=== PATIENT | female | born 1940 | race Hispanic/Latino ===

== ENCOUNTER 2024-12-18 14:48 | Emergency (ER) | payer MEDICARE, OTHER ==
[~2024-12-18] VITALS: Ht 162.6 cm; Wt 81.6 kg
[2024-12-18 15:39] LABS: BASOPHILS % 0.3 % (0.0-1.0); EOSINOPHILS % 0.1 % (0.0-6.0); LYMPHOCYTES % 5.8 % (18.0-39.1); MONOCYTES % 5.9 % (4.4-11.3); NEUTROPHILS % 87.4 % (38.7-80.0); RED CELL DISTRIBUTION WIDTH 13.1 % (11.7-14.4)
[2024-12-18 15:50] LABS: INR 1.12
[2024-12-18 16:01] LABS: EST GLOMERULAR FILTRATION RATE 69.0 ML/MIN (>=60)
[2024-12-18 16:06] LABS: CORONAVIRUS COVID-19 AG NEGATIVE (NEGATIVE)
[2024-12-18 16:10] LABS: B-TYPE NATRIURETIC PEPTIDE2 42.6 pg/mL (0-100)
[2024-12-18] MEDS: SODIUM CHLORIDE 0.9% 1000ML 1,000 ML IV STA (16:38)
[2024-12-18] MEDS: ACETAMINOPHEN 1000 MG/100 ML IV ONE (16:38)
[2024-12-18] MEDS ORDERED: IOPAMIDOL 370 MG/ML 100 ML INFUS..BTL INJ ONE (16:51)
[2024-12-18] MEDS ORDERED: SODIUM CHLORIDE 0.9% 100 ML ONE (16:51)
[2024-12-18 17:40] LABS: EPITHELIAL CELLS,URINE FEW /LPF; WBC,URINE (MAN) 21-50 /HPF (0-5)
[2024-12-18 17:49] LABS: LEUKOCYTE ESTERASE ,URINE TRACE (NEGATIVE); PROTEIN,URINE DIPSTICK 2+ (NEGATIVE); URINE UROBILINOGEN 0.2 mg/dL (0.2 - 1)
[2024-12-18] MEDS ORDERED: ENOXAPARIN SODIUM INJ 100 MG/ML SYR SC ONE (18:25)
[2024-12-18] MEDS ORDERED: HEPARIN SOD/DEXTROSE 5% 25000 UNIT/250 ML BAG IV SCH (18:45)
[2024-12-18] MEDS: HEPARIN SOD (PORCINE) 1000 UNIT/ML SDV IV ONE (19:52)
[2024-12-18] MEDS: HEPARIN 25,000 UNIT/D5W 250ML 250 ML IV SCH (19:57)
[2024-12-18 21:48] VITALS: PULSE 78; RESP 20; TEMP 98.4
[2024-12-18 22:27] VITALS: BP 114/79; PULSE 73; RESP 18; O2SAT 98
== END 2024-12-18 22:25 | disposition other institution (70) ==
LOC: ER 15:40
DX: R06.02 Shortness of breath (principal); I26.99 Other pulmonary embolism without acute cor pulmonale; D44.12 Neoplasm of uncertain behavior of left adrenal gland; R53.1 Weakness; G40.909 Epilepsy, unspecified, not intractable, without status epilepticus; R94.31 Abnormal electrocardiogram [ECG] [EKG]
CPT/HCPCS: 36415; 70450; 71045; 71260; 74177; 80053; 80156; 81001; 82550; 83605; 83735; 83880; 84484; 85025; 85610; 85730; 87040; 87086; 87186; 87426; 93005; 99284; J0131; J0696; J1644; J7030; J7050; Q9967